=== PATIENT | female | born 1980 | race African-American/Black ===

== ENCOUNTER 2016-11-20 13:07 | Emergency (ER) | payer OTHER ==
[2016-11-20 13:14] VITALS: BP 100/77; PULSE 74; TEMP 99.5; BMI 28.7
--- NOTE | 2016-11-20 13:31 | PDOC ---
History of Present Illness - General Chief Complaint: Vaginal Sxs Stated Complaint: PAIN History Source: Patient Exam Limitations: No Limitations - History of Present Illness Travel History: No Initial Comments: 11/20/16 13:50 36 yr female c/o urinary urgency and vaginal discharge. Pt states was dx with bacterial infection one month ago did not finish the prescription gel. Pt denies abd pain no fever or chills no nvd. Pt has history of partial hysterectomy. Pt is sexually active with one male partner no control. 11/20/16 13:53 Pain Radiation: reports: no radiation Past History - Past Medical History Allergies/Adverse Reactions: Allergies Allergy/AdvReac Type Severity Reaction Status Date / Time No Known Allergies Allergy Verified 11/20/16 13:15 Home Medications: Ambulatory Orders Fluoxetine HCl [Prozac] 30 mg PO DAILY 06/30/15 Risperidone 20 mg PO BID 06/30/15 Trazodone HCl 20 mg PO DAILY 06/30/15 Metronidazole 500 mg PO BID #14 tablet 11/20/16 Psychiatric Problems: Yes (depression) - Immunization History Immunization Up to Date: Yes - Psycho/Social/Smoking Cessation Hx Anxiety: No Suicidal Ideation: No Smoking History: Current every day smoker Have you smoked in the past 12 months: Yes Number of Cigarettes Smoked Daily: 10 Information on smoking cessation initiated: No 'Breaking Loose' booklet given: 06/30/15 Hx Alcohol Use: Yes (SOCIAL) Drug/Substance Use Hx: No Substance Use Type: None Abd/GI Specific PMHX - Complaint Specific PMHX Colitis: No Diverticulitis: No Gall Bladder Disease: No GERD: No Hepatitis: No Irritable Bowel Synd (IBS): No Pancreatitis: No GI Ulcer Disease: No Review of Systems - Review of Systems Able to Perform ROS?: Yes Is the patient limited [place] proficient: No Constitutional: No: Symptoms Reported HEENTM: No: Symptoms Reported Respiratory: No: Symptoms reported Cardiac (ROS): No: Symptoms Reported ABD/GI: No: Symptoms Reported : Yes: Symptoms Reported *Physical Exam - Vital Signs Last Vital Signs Temp Pulse Resp BP Pulse Ox 99.5 F 74 18 100/77 100 11/20/16 13:11 11/20/16 13:11 11/20/16 13:11 11/20/16 13:11 11/20/16 13:11 - Physical Exam Comments: 11/20/16 13:54 General Appearance: Yes: Nourished, Appropriately Dressed HEENT: positive: EOMI, CEDRICK Neck: positive: Supple. negative: Tender Respiratory/Chest: positive: Lungs Clear, Normal Breath Sounds Cardiovascular: positive: Regular Rhythm, Regular Rate Female Pelvic Exam: positive: normal external exam, discharge (white thin ) Gastrointestinal/Abdominal: positive: Normal Bowel Sounds, Soft Musculoskeletal: positive: Normal Inspection Extremity: positive: Normal Capillary Refill, Normal Inspection, Normal Range of Motion Integumentary: positive: Normal Color, Dry, Warm Neurologic: positive: Fully Oriented, Alert, Normal Response, Motor Strength 5/5 Medical Decision Making - Medical Decision Making 11/20/16 13:55 cc: vaginal discharge urinary urgency will r/o UTI r/o chlamydia, gonnorhea exam findings consistent with bacterial vaginosis , pt has had this in the past *DC/Admit/Observation/Transfer Diagnosis at time of Disposition: Bacterial vaginosis - Discharge Dispostion Disposition: HOME Condition at time of disposition: Good - Prescriptions Prescriptions: Metronidazole 500 mg PO BID #14 tablet - Referrals Referrals: Tricia Herrera MD [Primary Care Provider] - - Patient Instructions Additional Instructions: always use condoms no sexual activity until symptoms have resolved follow with your data entry coordinator if symptoms do not improve after treatment take the prescribed pills for 7 days We will CALL YOU if any of the other cultures are positive and you may need further treatment
[2016-11-20 14:26] LABS: URINE APPEARANCE CLEAR; URINE BILIRUBIN NEGATIVE (NEGATIVE); URINE BLOOD NEGATIVE (NEGATIVE); URINE COLOR LTYELLOW; URINE GLUCOSE (UA) NEGATIVE (NEGATIVE); URINE KETONE NEGATIVE (NEGATIVE); URINE LEUK ESTERASE NEGATIVE (NEGATIVE); URINE NITRITE NEGATIVE (NEGATIVE); URINE PROTEIN NEGATIVE (NEGATIVE); URINE UROBILINOGEN NEGATIVE E.U./dl (0.2-1.0)
== END 2016-11-20 15:13 | disposition home or self-care (01) ==
LOC: JERFT 13:07
DX: N76.0 Acute vaginitis (principal); B96.89 Other specified bacterial agents as the cause of diseases classified elsewhere
CPT/HCPCS: 36415; 81003; 84703; 87070; 87205; 87491; 87591; 99281-25

== ENCOUNTER 2017-04-16 21:13 | Emergency (ER) | payer OTHER ==
--- NOTE | 2017-04-16 21:41 | PDOC ---
Rapid Medical Evaluation Chief Complaint: Back Pain Time Seen by Provider: 04/16/17 21:37 Medical Evaluation: Allergies Allergy/AdvReac Type Severity Reaction Status Date / Time No Known Allergies Allergy Verified 11/20/16 13:15 04/16/17 21:37 I have performed a brief in-person evaluation of this patient. The patient presents with a chief complaint of: abd pain, vomiting, dysuria Pertinent physical exam findings: uncomfortable, dysuria, lower abd/back pain, no fever. stable I have ordered the following: cbc, cmp, ua, urine The patient will proceed to the ED for further evaluation. 04/16/17 21:40 Discharge Disposition - Diagnosis Abdominal pain Qualifiers: Abdominal location: unspecified location Qualified Code(s): R10.9 - Unspecified abdominal pain - Referrals Referrals: Tricia Herrera MD [Primary Care Provider] - - Patient Instructions - Post Discharge Activity
[2017-04-16 21:42] VITALS: BP 115/73; PULSE 84; TEMP 98.9; BMI 29.2
[2017-04-16 21:56] LABS: BASOPHIL 0.7 % (0-2.0); EOSINOPHIL 4.8 % (0-4.5); MCH 27.8 pg (25.7-33.7); MEAN PLT VOLUME 8.8 fl (7.5-11.1); NEUTROPHILS 59.9 % (42.8-82.8); PLATELET COUNT 171 K/MM3 (134-434); RDW 13.1 % (11.6-15.6); WHITE BLOOD COUNT 7.5 K/mm3 (4.0-10.0)
[2017-04-16 21:58] LABS: URINE APPEARANCE CLEAR; URINE BILIRUBIN NEGATIVE (NEGATIVE); URINE BLOOD NEGATIVE (NEGATIVE); URINE COLOR LTYELLOW; URINE GLUCOSE (UA) NEGATIVE (NEGATIVE); URINE KETONE NEGATIVE (NEGATIVE); URINE NITRITE NEGATIVE (NEGATIVE); URINE PROTEIN NEGATIVE (NEGATIVE); URINE UROBILINOGEN NEGATIVE mg/dL (0.2-1.0)
[2017-04-16 22:23] LABS: ALBUMIN 3.8 g/dl (3.4-5.0); ALK PHOS 58 U/L (45-117); ANION GAP 5 (8-16); BILIRUBIN,TOTAL 0.6 mg/dL (0.2-1.0); CALCIUM 8.7 mg/dL (8.5-10.1); CO2 29 mmol/L (21-32); CREATININE 0.8 mg/dL (0.55-1.02); GLUCOSE,RANDOM 97 mg/dL (74-106); SGOT/AST 12 U/L (15-37); SGPT/ALT 26 U/L (12-78); TOT PROT 7.2 g/dl (6.4-8.2)
[2017-04-16] MEDS ORDERED: KETOROLAC TROMETHAMINE 60 MG/2 ML VIAL IM ONE (22:28)
[2017-04-16] MEDS ORDERED: LEVOFLOXACIN 750 MG TABLET PO SCH (22:30)
[2017-04-16] MEDS ORDERED: KETOROLAC TROMETHAMINE 30 MG/1 ML VIAL ONE (22:31)
[2017-04-16] MEDS ORDERED: LEVOFLOXACIN 500 MG TABLET (FP) ONE (22:31)
--- NOTE | 2017-04-16 22:43 | PDOC ---
History of Present Illness - General Chief Complaint: Back Pain Stated Complaint: BACK PAIN Time Seen by Provider: 04/16/17 21:37 History Source: Patient Exam Limitations: No Limitations - History of Present Illness Initial Comments: 04/16/17 23:35 36-year-old female with no medical history presents to the emergency department complaining of right sided low back pain 2 days. Patient believes it is a musculoskeletal discomfort area patient also complains of subjective fever with chills but denies nausea/vomiting. Patient's been experiencing very slight and upon urination with frequency but no urgency 2 days. Patient has never been diagnosed with pyelonephritis. Patient denies the pain is in her flank. Patient denies fever dizziness, lightheadedness, headaches, neck stiffness, neck pains, chest pain, shortness of breath, abdominal discomfort. Occurred: reports: other (x2d) Pain Location: reports: back (right) Past History - Past Medical History Allergies/Adverse Reactions: Allergies Allergy/AdvReac Type Severity Reaction Status Date / Time No Known Allergies Allergy Verified 11/20/16 13:15 Home Medications: Ambulatory Orders Fluoxetine HCl [Prozac] 30 mg PO DAILY 06/30/15 Risperidone 20 mg PO BID 06/30/15 Trazodone HCl 20 mg PO DAILY 06/30/15 Metronidazole 500 mg PO BID #14 tablet 11/20/16 Levofloxacin [Levaquin] 500 mg PO DAILY #9 tablet 04/16/17 CVA: No COPD: No Psychiatric Problems: Yes (depression) - Immunization History Immunization Up to Date: Yes - Suicide/Smoking/Psychosocial Hx Smoking History: Current every day smoker Have you smoked in the past 12 months: Yes Number of Cigarettes Smoked Daily: 6 Information on smoking cessation initiated: No 'Breaking Loose' booklet given: 06/30/15 Hx Alcohol Use: No Drug/Substance Use Hx: No Substance Use Type: None Review of Systems - Review of Systems Able to Perform ROS?: Yes Comments:: 04/16/17 22:45 CONSTITUTIONAL: +subjective fever/chills Absent: diaphoresis, generalized weakness, malaise, loss of appetite HEENT: Absent: rhinorrhea, nasal congestion, throat pain, throat swelling, difficulty swallowing, mouth swelling, ear pain, eye pain, visual Changes CARDIOVASCULAR: Absent: chest pain, loss of consciousness, palpitations, irregular heart rate, peripheral edema RESPIRATORY: Absent: cough, shortness of breath, dyspnea with exertion, orthopnea, wheezing, stridor, hemoptysis GASTROINTESTINAL: +nausea Absent: abdominal pain, abdominal distension, vomiting, diarrhea, constipation, melena, hematochezia GENITOURINARY: +dysuria, frequency, urgency, hesitancy Absent: , hematuria, flank pain, genital pain MUSCULOSKELETAL: Absent: myalgia, arthralgia, joint swelling SKIN: Absent: rash, itching, pallor HEMATOLOGIC/IMMUNOLOGIC: Absent: easy bleeding, easy bruising, lymphadenopathy, frequent infections ENDOCRINE: Absent: unexplained weight gain, unexplained weight loss, heat intolerance, cold intolerance Is the patient limited [place] proficient: No *Physical Exam - Vital Signs Last Vital Signs Temp Pulse Resp BP Pulse Ox 98.9 F 84 18 115/73 100 04/16/17 21:37 04/16/17 21:37 04/16/17 21:37 04/16/17 21:37 04/16/17 21:37 - Physical Exam Comments: 04/16/17 22:45 GENERAL: Well developed, well nourished. Awake and alert. No acute distress. HEENT: Normocephalic, atraumatic. PERRLA, EOMI. No conjunctival pallor. Sclera are non- icteric. Moist mucous membranes. Oropharynx is clear. NECK: Supple. Full ROM. No JVD. Carotid pulses 2+ and symmetric, without bruits. No thyromegaly. No lymphadenopathy. CARDIOVASCULAR: Regular rate and rhythm. No murmurs, rubs, or gallops. Distal pulses are 2+ and symmetric. PULMONARY: No evidence of respiratory distress. Lungs clear to auscultation bilaterally. No wheezing, rales or rhonchi. ABDOMINAL: RIGHT FLANK PAIN Soft. Non-tender. Non-distended. No rebound or guarding. No organomegaly. Normoactive bowel sounds. MUSCULOSKELETAL Normal range of motion at all joints. No bony deformities or tenderness. No CVA tenderness. EXTREMITIES: No cyanosis. No clubbing. No edema. No calf tenderness. SKIN: Warm and dry. Normal capillary refill. No rashes. No jaundice. 04/16/17 23:37 ED Treatment Course - LABORATORY CBC & Chemistry Diagram: 04/16/17 21:45 04/16/17 21:45 - ADDITIONAL ORDERS Additional order review: Laboratory Results 04/16/17 04/16/17 21:45 21:45 Sodium 140 Potassium 4.7 Chloride 106 Carbon Dioxide 29 Anion Gap 5 L BUN 13 D Creatinine 0.8 D Creat Clearance w eGFR > 60 Random Glucose 97 D Calcium 8.7 Total Bilirubin 0.6 D AST 12 L D ALT 26 Alkaline Phosphatase 58 Total Protein 7.2 Albumin 3.8 Urine Color Ltyellow Urine Appearance Clear Urine pH 6.0 Ur Specific Thida 1.021 Urine Protein Negative Urine Glucose (UA) Negative Urine Ketones Negative Urine Blood Negative Urine Nitrite Negative Urine Bilirubin Negative Urine Urobilinogen Negative Urine HCG, Qual Negative 04/16/17 21:45 RBC 4.91 MCV 87.0 MCHC 32.0 RDW 13.1 MPV 8.8 Neutrophils % 59.9 Lymphocytes % 25.7 D Monocytes % 8.9 Eosinophils % 4.8 H Basophils % 0.7 - Medications Given in the ED: ED Medications Discontinued Medications Generic Name Dose Route Start Last Admin Trade Name Freq PRN Reason Stop Dose Admin Ketorolac Tromethamine 60 mg 04/16/17 22:28 04/16/17 22:38 Toradol Injection - IM 04/16/17 22:29 60 mg ONCE ONE Administration Progress Note - Progress Note Progress Note: Patient was informed her urine analysis was clean but due to the symptoms, she will be treated for pyelonephritis. She is to follow with urology and her PMD. Urine culture has been sent. Patient insists that its musculoskeletal and therefore was given Toradol IM. Patient states she feels a little better from the Toradol. *DC/Admit/Observation/Transfer Diagnosis at time of Disposition: Pyelonephritis - Discharge Dispostion Disposition: HOME Condition at time of disposition: Good - Prescriptions Prescriptions: Levofloxacin [Levaquin] 500 mg PO DAILY #9 tablet - Referrals Referrals: Tricia Herrera MD [Primary Care Provider] - Will Lindsay MD [Staff Physician] - - Patient Instructions Printed Discharge Instructions: Kidney Infection Additional Instructions: Increase fluids Follow follow-up with your physician or the urologist Return back to the emergency department for severe/persistent or worsening symptoms - Post Discharge Activity
[2017-04-17 09:20] LABS: URINE LEUK ESTERASE Negative (NEGATIVE)
== END 2017-04-16 22:47 | disposition home or self-care (01) ==
LOC: JER 21:13 → JERFT 21:13
PROC: 3E0233Z Introduction of Anti-inflammatory into Muscle, Percutaneous Approach (ICD-10-PCS; principal; 2017-04-16)
DX: N12 Tubulo-interstitial nephritis, not specified as acute or chronic (principal); F32.9 Major depressive disorder, single episode, unspecified; F17.210 Nicotine dependence, cigarettes, uncomplicated
CPT/HCPCS: 36415; 80053; 81003; 84703; 85025; 87086; 96372; 99281-25

== ENCOUNTER 2023-11-26 09:13 | Emergency (ER) | payer OTHER ==
[2023-11-26 09:25] VITALS: BP 122/76; PULSE 68; RESP 16; TEMP 98.3; BMI 32.9
[2023-11-26] MEDS ORDERED: ACETAMINOPHEN 325 MG TABLET (FP) ONE (10:12)
[2023-11-26] MEDS: ACETAMINOPHEN 325 MG TABLET (FP) PO ONE (10:30)
[2023-11-26 10:40] LABS: EPI CELLS 19 /uL (0-25.1); HYALINE CASTS 1 /uL (0-3.1); PH,URINE 7.5 (5.0-8.0); URINE APPEARANCE CLEAR; URINE BACTERIA >9,000 /uL (0-1359); URINE BILIRUBIN NEGATIVE (NEGATIVE); URINE COLOR YELLOW; URINE GLUCOSE (UA) NEGATIVE (NEGATIVE); URINE KETONE NEGATIVE (NEGATIVE); URINE LEUK ESTERASE TRACE (NEGATIVE); URINE NITRITE POSITIVE (NEGATIVE); URINE PROTEIN NEGATIVE (NEGATIVE); URINE RBC 15 /uL (0-23.9); URINE WBC 31 /uL (0-25.8)
[2023-11-26 10:41] LABS: HCG,QUALITATIVE URINE Negative
== END 2023-11-26 11:40 | disposition home or self-care (01) ==
LOC: JER 09:13
DX: N30.00 Acute cystitis without hematuria (principal); M25.512 Pain in left shoulder; M25.562 Pain in left knee; M54.50 Low back pain, unspecified; R35.0 Frequency of micturition; V89.2XXA Person injured in unspecified motor-vehicle accident, traffic, initial encounter
CPT/HCPCS: 73552-TC-LT-FY; 73564-TC-LT-FY; 81003; 84703; 87086; 87186; 99284-25